=== PATIENT | female | born 1980 | race Caucasian/White ===

== ENCOUNTER → 2021-08-28 | Outpatient (CLI) | payer OTHER ==
[~2021-08-28] VITALS: Ht 162.6 cm; Wt 55.8 kg
[~2021-08-28] MED LIST: ASA81BEC PO; DORYX MPC120 MG PO; KLOR-CON 1010 MEQ PO; LEVO-T25 MCG PO; LIPITOR80 MG PO; MAGNESIUM250 M1 PO; PROBIOTIC1 EAC7 PO; SUPER THERAVIT1 EACH PO; ZINC50 M3 PO
[2021-08-28 08:49] VITALS: BP 107/55
[2021-08-28 08:54] LABS: HEMATOCRIT 38.7 % (37.0-47.0); HEMOGLOBIN 13.1 gm/dL (12.0-15.0); MCH 29.7 pg (26.0-34.0); MCHC 33.8 g/dL (28.0-37.0); MCV 87.7 fL (80.0-100.0); RBC 4.41 mil/uL (4.20-5.00); RDW 12.5 % (10.5-14.5); WBC 3.9 thou/uL (4.0-11.0)
--- NOTE | 2021-08-28 09:01 | EKG ---
[place] [address] [facility] [place] [address] ELECTROCARDIOGRAM REPORT Name: MOSHE OROZCO Room #: REG [facility]#: [id number] Admission: 08/28/21 Attend Phys: Yan Carlson MD, Discharge: Date of : 76 Report #: [id number] [facility] Test Date: 2021-08-28 Test Time: 08:38:15 Pat Name: MOSHE OROZCO Department: Room: Gender: F [employer] Operator: [facility] : 1980 Requested By: Yan Carlson Order Number: [id number] MD: Yuniel Barkley Measurements Intervals [place] Rate: 86 P: 65 VT: 137 QRS: 21 QRSD: 131 T: 67 QT: 405 QTc: 485 Interpretive Statements Sinus rhythm Left bundle branch block No previous ECG available for comparison Electronically Signed On 08-28-2021 9:01:56 ENVIRONMENTAL MONITORING SPECIALIST by Yuniel Barkley [email or web address] <ELECTRONICALLY SIGNED> By: Yuniel Barkley MD, [facility] 08/28/21 0901 0838 0838 Yuniel Barkley MD, FACC /EPI
[2021-08-28 09:05] LABS: CALCIUM 9.2 mg/dL (8.5-10.1); POTASSIUM 4.1 mmol/L (3.5-5.1)
--- NOTE | 2021-08-28 11:25 | CATHLAB ---
[facility] [place] [address] [place] [address] INVASIVE PROCEDURE REPORT Name: MOSHE OROZCO Room #: REG [facility] [place]#: [id number] Admission: 08/28/21 Attend Phys: Yan Carlson MD, Discharge: Date of : 76 Report #: [id number] THIS REPORT FOR: cc: Toribio Cuello Jeffrey W. DO Mancuso, Gerald M. MD [facility] ~ APPROVED REPORT Study performed: 08/28/2021 09:19:36 Patient Details Patient Status: Out-Patient Room #: The patient is a 41 year-old female Event Personnel Yan Carlson Health Teacher, Jaziel Diallo RN RN, Emily Byrd RTR Scrub, Jeana Liang RTR Monitor Procedures Performed Left Heart Cath w/or w/o Coronaries [id number] [facility] Art Access - R femoral artery* Aortogram Abdominal Peripheral Angio 387638 Hemostasis w/ Mynx 60755 Initial Mod Sed Same Phys/QHP Gr5y [id number] Indication Chest pain Procedure Narrative The Right Groin^ was infiltrated with 1% Lidocaine subcutaneous anesthesia. A PINNACLE 6FR Sheath #[id number] sheath was inserted into the RFA^. Coronary angiography was performed using coronary diagnostic catheters. The right coronary system was accessed and visualized with a JR4 catheter. The left coronary system was accessed and visualized with a JL4 catheter. The left ventricle was accessed and visualized with a PIGTAIL catheter. An aortogram of the abdominal aorta was performed. Closure device was deployed with a Fr MYNXGRIP 6/7F #[id number]. The patient tolerated the procedure well and there were no complications associated with the procedure. There was no hematoma. Intraoperative Conscious Sedation Sedation start time: 10:03 Case end Time: 10:33 Fentanyl 75 mcg Versed 1.5 mg [facility] [place] [address] INVASIVE PROCEDURE REPORT Name: MOSHE OROZCO Room #: MAUREEN [place]#: [id number] Admission: 08/28/21 Attend Phys: Yan Carlson, Discharge: Date of : 76 Report #: [id number] Fluoro Time: 2.20 minutes Dose: DAP 914.10 cGycm2 104 mGy Contrast Type and Amount: Omnipaque 95 ml Hemodynamics The aortic pressure is 108/57 mmHg with a mean of 84 mmHg. The left ventricular pressure is 124/1 mmHg with a mean of mmHg. The left ventricular end diastolic pressure is 12 mmHg. Conclusion #1 Normal left jugular size systolic function lower limits of normal EF 50 to 55%. #2 abdominal aortography normal caliber aorta brisk filling is noted no aneurysm renal arteries and iliac system widely patent. #3 there is a short left main giving rise to LAD and a codominant circumflex. No occlusive disease is noted. #4 codominant right coronary artery giving rise to a smaller PDA is widely patent no occlusive disease. Recommendations and plan: Continue aggressive risk factor modification. There is no indication for coronary intervention. Coronary anatomy is widely patent. <ELECTRONICALLY SIGNED> By: Yan Carlson MD, [facility] 08/28/21 1125 1125 1125 Yan Carlson MD, FACC /INF
== END | disposition home or self-care (01) ==
LOC: CATH 08-25 08:11
PROVIDERS: ATTEND Internal Medicine Cardiovascular Disease
DX: R07.9 Chest pain, unspecified (principal); R94.39 Abnormal result of other cardiovascular function study; R00.2 Palpitations; I44.7 Left bundle-branch block, unspecified; Z98.890 Other specified postprocedural states; Z79.899 Other long term (current) drug therapy; Z79.82 Long term (current) use of aspirin